=== PATIENT | male | born 1955 | race Two or more races ===

== ENCOUNTER 2020-04-20 18:22 | Inpatient (IN) | payer OTHER ==
[~2020-04-20] VITALS: Ht 170.2 cm; Wt 76.2 kg
--- NOTE | 2020-04-20 18:32 | NUR ---
BIBRA 58 FRM HOME C/O WEAKNESS AND ABDOMINAL PAIN "ONGOING FOR A LONG TIME" THORACENTESIS LAST WEEKK FROM PNEUMONIA, ON 2LPM O2 VIA NC, NEGATIVE COVID x 1WK, BS 124, PER PATIENT, DR GODWIN FROM [facility] SUGGESTED THAT HIS ABDOMEN BE DRAINED. TO ER BED 2, HOOKED TO MONITOR, CHANGED TO HOSP GOWN, WARM BLANKET PROVIDED, PATIENT AAO x 4, BREATHING EVEN AND UNLABORED, NAD NOTED. DR HOGUE AT BEDSIDE
--- NOTE | 2020-04-20 18:43 | NUR ---
JEWEL FLORES AT BEDSIDE FOR EKG
--- NOTE | 2020-04-20 18:47 | NUR ---
iv started 20g left fa labs and blood cultures done sent to lab monitors applied pending ua
--- NOTE | 2020-04-20 18:53 | NUR ---
ua sent to lab
--- NOTE | 2020-04-20 19:08 | NUR ---
XRAY AT BEDSIDE
[2020-04-20 19:13] LABS: ALANINE AMINOTRANSFERASE 20 U/L (12-78); ALKALINE PHOSPHATASE 141 U/L (46-116); ASPARTATE AMINOTRANSFERASE 42 U/L (15-37); B-TYPE NATRIURETIC PEPTIDE 85 PG/ML (0-125); BILIRUBIN,TOTAL 1.5 mg/dL (0.2-1.0); CALCIUM, SERUM 8.7 mg/dL (8.5-10.1); CARBON DIOXIDE 24 mmol/L (21-32); CHLORIDE 98 mmol/L (98-107); CREATININE 0.9 mg/dL (0.6-1.3); GLUCOSE 182 mg/dL (74-106); POTASSIUM 3.9 mmol/L (3.5-5.1); SODIUM SERUM 132 mmol/L (136-145); TOTAL PROTEIN, SERUM 8.5 g/dL (6.4-8.2); UREA NITROGEN, BLOOD 12 mg/dL (7-18)
[2020-04-20] MEDS ORDERED: CEFTRIAXONE 1GM BAG (ER ONLY) 1 GM/50 ML PIGGYBACK IV ONE (19:30)
--- NOTE | 2020-04-20 19:36 | NUR ---
VERBAL AUTH REC'D FROM EVELYN FROM [facility]
[2020-04-20] MEDS ORDERED: CEFTRIAXONE 1GM BAG (ER ONLY) 50 ML IV ONE (19:39)
--- NOTE | 2020-04-20 19:47 | NUR ---
DR. HOGUE SPEAKING WITH DR. HALE REGARDING ADMISSION
[2020-04-20 19:50] LABS: APPEARANCE,URINE CLEAR (CLEAR); BILIRUBIN,URINE SMALL (NEGATIVE); BLOOD, URINE NEGATIVE Ery/uL (NEGATIVE); COLOR,URINE YELLOW (YELLOW); KETONES,URINE TRACE (NEGATIVE); LEUKOCYTE ESTERASE ,URINE NEGATIVE (NEGATIVE); NITRITE, URINE NEGATIVE (NEGATIVE); PROTEIN,URINE 30 mg/dl (NEGATIVE); UGLUCOSE NEGATIVE (NEGATIVE)
[2020-04-20 20:01] LABS: BACTERIA,URINE None seen /HPF (None Seen); MUCUS,URINE Moderate /LPF (None Seen); RBC,URINE 0-2 /HPF (0-2); SQUAMOUS EPITHELIAL CELL,UR Few /HPF (None Seen); URINE AMORPHOUS URATE Few /HPF (None Seen)
[2020-04-20 20:04] LABS: BASOPHILS # (AUTO) 0.1 /CMM (0.0-0.2); BASOPHILS % (AUTO) 0.5 % (0.0-2.0); EOSINOPHILS % (AUTO) 0.7 % (0.0-6.0); HEMATOCRIT 26 % (39-51); HEMOGLOBIN 8.1 g/dL (13.5-17.5); LYMPHOCYTES # (AUTO) 0.7 /CMM (0.8-4.8); LYMPHOCYTES % (AUTO) 7.2 % (20.0-44.0); MEAN CORPUSCULAR HGB CONC 31 g/dl (31.0-36.0); MEAN CORPUSCULAR VOLUME 76 fL (80-96); MONOCYTES # (AUTO) 1.4 /CMM (0.1-1.30); MONOCYTES % (AUTO) 14.9 % (2.0-12.0); NEUTROPHILS # (AUTO) 7.3 /CMM (1.8-8.9); NEUTROPHILS % (AUTO) 76.7 % (43.0-81.0); PLATELET COUNT (AUTO) 256 /CMM (150-450); RED BLOOD CELL COUNT(AUTO) 3.48 MIL/uL (4.5-6.0); WHITE BLOOD COUNT (AUTO) 9.5 K/uL (4.3-11.0)
--- NOTE | 2020-04-20 20:21 | NUR ---
REC'D NEG COVID RESULTS
[2020-04-20] MEDS ORDERED: ACETAMINOPHEN 325 MG TABLET PO PRN (20:30)
[2020-04-20] MEDS ORDERED: MAG HYDROX/AL HYDROX/SIMETH 30 ML UDC PO PRN (20:30)
[2020-04-20] MEDS ORDERED: MAGNESIUM HYDROXIDE 30 ML UDC PO PRN (20:30)
[2020-04-20] MEDS ORDERED: FUROSEMIDE 40 MG/4 ML VIAL IV ONE (20:30)
[2020-04-20] MEDS ORDERED: Z GUARD REMEDY 2 OZ OINT TP PRN (20:30)
[2020-04-20] MEDS ORDERED: ONDANSETRON HCL/PF 4 MG/2 ML VIAL IVP PRN (20:30)
[2020-04-20] MEDS ORDERED: HYDROCODONE/APAP 5/325MG TABLET PO PRN (20:30)
--- NOTE | 2020-04-20 20:46 | NUR ---
BED ASSIGNMENT 106
--- NOTE | 2020-04-20 20:53 | NUR ---
REPORT GIVEN MAI MAKI FOR BRYCE PT WILL BE TRANSPORTED TO 1ST FLOOR
[2020-04-20 21:00] VITALS: BP 127/67
--- NOTE | 2020-04-20 21:05 | NUR ---
2105 ADMITTED FROM ER 64 YEAR OLD MALE VIA [facility] CHF, AAOX4. ABLE TO TRANSFER SELF TO [facility] BED WITH MIN ASSISTANCE. ON O2 AT 2LPM PER NC. NOTED WITH MILD SOB ON EXERTION. FACE MASK ON PATIENT. ADMISSION CARE AND ASSESSMENT RENDERED. NO SKIN BREAKDOWN NOTED BUT WITH SCATTERED REDNESS ON BACK, CHEST, AND ARMS. PATIENT WITH NO C/O PAIN WHEN ASKED. PLACED URINAL AT BEDSIDE AND CALL LIGHT AND INSTRUCTED TO CALL FOR ASSISTANCE.
--- NOTE | 2020-04-20 21:18 | NUR ---
PT TRANSPORTED TO [facility]
[2020-04-21] VITALS: BP 114/73
[2020-04-21] MEDS ORDERED: PIPERACILLIN /TAZOBACTAM 3.375 G VIAL IV ONE ×2 (00:15→05:13)
[2020-04-21] MEDS: ZOSYN IVPB 3.375 G in IV D5W 50ml IV SCH ×2 (00:26→04:00)
[2020-04-21] MEDS ORDERED: DEXTROSE 50%-WATER 50 ML DISP.SYRIN IV PRN (00:30)
[2020-04-21 04:00] VITALS: BP 114/67
--- NOTE | 2020-04-21 04:19 | NUR ---
RN notes Admitted a 64 year old male from ER via stretcher with diagnosis of fluid overload. Alert and oriented, verbally able to communicate needs. On room air , tolerating well. With procedure in AM for thoracentesis and paracentesis. Consent obtained. Noted with lung congestion upon auscultation. No complaint of pain or discomfort. Patient has a history of liver cirrhosis. Abdomen distended. Head of bed elevated. Needs attended. kept clean and dry. Will endorse to next shift for continuity of care.
[2020-04-21 06:48] LABS: BASOPHILS # (AUTO) 0.1 /CMM (0.0-0.2); BASOPHILS % (AUTO) 0.7 % (0.0-2.0); EOSINOPHILS % (AUTO) 1.6 % (0.0-6.0); HEMATOCRIT 24 % (39-51); HEMOGLOBIN 7.6 g/dL (13.5-17.5); LYMPHOCYTES # (AUTO) 0.6 /CMM (0.8-4.8); LYMPHOCYTES % (AUTO) 7.7 % (20.0-44.0); MEAN CORPUSCULAR HGB CONC 31 g/dl (31.0-36.0); MEAN CORPUSCULAR VOLUME 75 fL (80-96); MONOCYTES # (AUTO) 1.2 /CMM (0.1-1.30); MONOCYTES % (AUTO) 15.5 % (2.0-12.0); NEUTROPHILS # (AUTO) 5.8 /CMM (1.8-8.9); NEUTROPHILS % (AUTO) 74.5 % (43.0-81.0); PLATELET COUNT (AUTO) 234 /CMM (150-450); RED BLOOD CELL COUNT(AUTO) 3.25 MIL/uL (4.5-6.0); WHITE BLOOD COUNT (AUTO) 7.8 K/uL (4.3-11.0)
--- NOTE | 2020-04-21 07:20 | NUR ---
RN NOTE THE PATIENT IS RECEIVED IN BED. THE PATIENT IS ALERT AND ORIENTED X4. DENIES PAIN. RECEIVING OXYGEN AT 2L/MIN VIA NASAL CANNULA AND DENIES SOB. RESPIRATION REGULAR AND UNLABORED. LFA G 20 PATENT AND SALINE LOCKED. BED LOW AND LOCKED. SIDE RAILS UP X3. CALL LIGHT WITHIN REACH. WILL CONTINUE TO MONITOR.
[2020-04-21 07:38] LABS: CALCIUM, SERUM 8.7 mg/dL (8.5-10.1); CREATININE 0.7 mg/dL (0.6-1.3); PHOSPHORUS 2.6 mg/dL (2.5-4.9); POTASSIUM 3.5 mmol/L (3.5-5.1)
[2020-04-21] MEDS ORDERED: INSU100I4 SQ (07:51)
[2020-04-21] MEDS ORDERED: HYDR-3973 PO (07:51)
[2020-04-21] MEDS ORDERED: METF-442 PO (07:51)
[2020-04-21] MEDS ORDERED: INSU100I26 SQ (07:51)
[2020-04-21 08:00] VITALS: BP 133/82
[2020-04-21] MEDS: BLOOD SUGAR DIAGNOSTIC 1 EACH STRIP VI SCH ×4 (09:15→21:26)
[2020-04-21] MEDS: INSULIN REGULAR, HUMAN 100 UNIT/ML 3 ML VIAL SQ PRN (09:17)
--- NOTE | 2020-04-21 09:17 | NUR ---
RN NOTE BLOOD SUGAR IS 107. NO COVERAGE PER ORDER.
[2020-04-21] MEDS: METFORMIN 500 MG TABLET PO SCH ×2 (09:26→16:27)
[2020-04-21] MEDS: PIPERACILLIN /TAZOBACTAM 3.375 G in IV D5W 100 ML IV SCH ×2 (09:54→18:51)
[2020-04-21 13:00] VITALS: BP 128/87
--- NOTE | 2020-04-21 15:30 | NUR ---
RN NOTE THE PATIENT HAD THORACENTESIS AND 2010 ML FLUID WAS REMOVED AND THE FLUID WAS TAKEN TO THE LAB. PARACENTESIS WAS NOT DONE DUE TO PATIENT HAD ONLY TRACE OF FLUID IN ADBOMINAL CAVITY (PER DR BROOKS). THE PATIENT IN STABLE CONDITION AT THIS TIME. RESPIRATION REGULAR AND UNLABORED. DENIES SOB. DENIES PAIN. WILL CONTINUE TO MONITOR.
[2020-04-21 16:00] VITALS: BP 120/76
[2020-04-21] MEDS ORDERED: Medication Not On Formulary EA (Metformin Hcl 1,000 MG) PO SCH (17:00)
--- NOTE | 2020-04-21 19:02 | NUR ---
RN NOTE THE PATIENT IS ALERT AND ORIENTED X4. RECEIVING OXYGEN AT 2L/MIN VIA NASAL CANNULA AND SATURATION IS AT 98%. DENIES SOB. BREATHING EVEN AND UNLABORED. DENIES PAIN. EXTERNAL TELE BOX READING IS SINUS TACHYCARDIA 116. THE PATIENT IS IN NO APPARENT DISTRESS. LFA G 20 PATENT AND SALINE LOCKED. BED LOW AND LOCKED. SIDE RAILS UP X2. CALL LIGHT WITHIN REACH. WILL ENDORSE TO NIGHTS SHIFT.
--- NOTE | 2020-04-21 19:03 | NUR ---
RN NOTE PATIENT STATED THE HIS FAMILY WILL PROVIDE BASILGAR TOMORROW. PHARMACY IS MADE AWARE.
--- NOTE | 2020-04-21 19:20 | NUR ---
RN NOTE RECEIVED PATIENT IN BED RESTING, WATCHING TV, AWAKE, ALERT, ORIENTED X3. ABLE TO MAKE NEEDS KNOWN. PATIENT IS 64 Y/O MALE WITH DX OF FLUID OVERLOAD. BREATHING IS EVEN AND UNLABORED. NO SOB NOTED AT THIS TIME. ON 2 LITERS O2 VIA NC. PATIENT IS S/P THORACENTESIS PER AM SHIFT REPORT, WITH 2010 ML FLUID OUTPUT. PATIENT IS AMBULATORY WITH STANDBY ASSIST. CONTINENT OF BOWEL AND BLADDER. PATIENT IS MOTIVATED TO SELF CARE. SKIN IS INTACT. IV SITE ON LFA IS CLEAN, DRY, AND PATENT. PATIENT COMPLAINED OF 8/10 ABDOMINAL PAIN. WILL CONTINUE TO MONITOR.
[2020-04-21] MEDS: HYDROCODONE/APAP 5/325MG TABLET PO PRN (19:33)
[2020-04-21 20:00] VITALS: BP 113/64
[2020-04-21] MEDS: *INSULIN REGULAR(HUMULIN R)HUM 100 UNIT/ML VIAL SQ PRN (21:27)
[2020-04-22] VITALS: BP 104/75
[2020-04-22] MEDS: PIPERACILLIN /TAZOBACTAM 3.375 G in IV D5W 100 ML IV SCH ×3 (01:22→17:36)
[2020-04-22 04:00] VITALS: BP 117/68
--- NOTE | 2020-04-22 06:39 | NUR ---
RN NOTE PATIENT REMAINED STABLE THROUGHOUT THE NIGHT. NO SIGNIFICANT CHANGES NOTED. PATIENT IS KEPT CLEAN, DRY, AND COMFORTABLE. DUE MEDS GIVEN ORDERED AND TOLERATED WELL. WILL ENDORSE TO SHIFT RN FOR CONTINUATION OF CARE.
[2020-04-22 06:42] LABS: BASOPHILS # (AUTO) 0.1 /CMM (0.0-0.2); BASOPHILS % (AUTO) 0.7 % (0.0-2.0); EOSINOPHILS % (AUTO) 1.5 % (0.0-6.0); HEMATOCRIT 23 % (39-51); HEMOGLOBIN 7.1 g/dL (13.5-17.5); LYMPHOCYTES # (AUTO) 0.5 /CMM (0.8-4.8); LYMPHOCYTES % (AUTO) 5.6 % (20.0-44.0); MEAN CORPUSCULAR HGB CONC 31 g/dl (31.0-36.0); MEAN CORPUSCULAR VOLUME 75 fL (80-96); MONOCYTES # (AUTO) 1.2 /CMM (0.1-1.30); MONOCYTES % (AUTO) 12.2 % (2.0-12.0); NEUTROPHILS # (AUTO) 7.6 /CMM (1.8-8.9); PLATELET COUNT (AUTO) 230 /CMM (150-450); RED BLOOD CELL COUNT(AUTO) 3.04 MIL/uL (4.5-6.0); WHITE BLOOD COUNT (AUTO) 9.5 K/uL (4.3-11.0)
[2020-04-22 06:59] LABS: CALCIUM, SERUM 8.5 mg/dL (8.5-10.1); CREATININE 0.8 mg/dL (0.6-1.3); POTASSIUM 3.8 mmol/L (3.5-5.1)
--- NOTE | 2020-04-22 07:00 | NUR ---
RN NOTES RECEIVED PT ON BED , A/Ox4, ON 2L O2 N/C , RESPIRATION EVEN AND UNLABORED , NO DISTRESS NOTED , ON TELE SR HR IN 90'S , L FA IV SITE G 20 CLEAN, DRY AND INTACT, SR UP x3, CALL LIGHT WITHIN EASY REACH, BED LOCKED AND IN LOWEST POSITION, CONTINUE TO MONITOR .
[2020-04-22 08:00] VITALS: BP 109/70
[2020-04-22] MEDS: METFORMIN 500 MG TABLET PO SCH ×2 (08:07→17:08)
[2020-04-22] MEDS: INSULIN REGULAR, HUMAN 100 UNIT/ML 3 ML VIAL SQ PRN ×2 (08:08→11:18)
[2020-04-22] MEDS: BLOOD SUGAR DIAGNOSTIC 1 EACH STRIP VI SCH ×4 (08:09→22:15)
--- NOTE | 2020-04-22 12:00 | NUR ---
RN NOTES PT STABLE, OUT OF BED TO BATHROOM, CONTINUE TO MONITOR .
[2020-04-22 16:00] VITALS: BP 109/64
[2020-04-22] MEDS: HYDROCODONE/APAP 5/325MG TABLET PO PRN (17:12)
--- NOTE | 2020-04-22 18:13 | NUR ---
RN NOTES NO SIGNIFICANT CHANGES NOTED ON THIS SHIFT. VSS STABLE, WILL ENDOSE TO DIESEL ENGINE ERECTOR NURSE FOR CONTINUITY OF CARE .
--- NOTE | 2020-04-22 19:45 | NUR ---
RN OPENING NOTE RECEIVED PT IN BED A/Ox4, CURRENTLY ON 2L O2 VIA N/C. PT IN NO DISTRESS RESPIRATION EVEN AND UNLABORED, ON TELE MONITOR SR, IV SITE TO LFA PATENT AND INTACT FLUSHING WELL. SIDE RAILS UP X2, CALL LIGHT WITHIN EASY REACH, BED LOCKED AND IN LOWEST POSITION. SAFETY MEASURES IN PLACE WILL CONTINUE TO MONITOR PT.
[2020-04-22 20:00] VITALS: BP 90/55
--- NOTE | 2020-04-22 21:03 | NUR ---
RN NOTE PT AMBULATED TO THE RESTROOM WITHOUT DIFFICULTY, RECHECKED BP 95/58 HR 106. PT ON 2 L O2 VIA NC. WILL CONTINUE TO MONITOR PT
[2020-04-22] MEDS: INSULIN GLARGINE SQ SCH (22:00)
[2020-04-22] MEDS: [UNRECOGNIZED DRUG - OTHER] SQ SCH (22:00)
--- NOTE | 2020-04-22 22:20 | NUR ---
RN NOTE ACCUCHECK BLOOD SUGAR 148. INSULIN GLARGINE NOT ADMINISTERED PER MD ORDERS.
[2020-04-22] MEDS: *INSULIN REGULAR(HUMULIN R)HUM 100 UNIT/ML VIAL SQ PRN (22:23)
[2020-04-23] VITALS (69 sets, daily range): BP systolic 60–139; BP diastolic 27–75
[2020-04-23] MEDS: PIPERACILLIN /TAZOBACTAM 3.375 G in IV D5W 100 ML IV SCH ×3 (02:00→18:16)
--- NOTE | 2020-04-23 06:52 | NUR ---
RN CLOSING NOTE PT AWAKE WITH HOB ELEVATED, AMBULATED TO BATHROOM AT THIS TIME. SOB ON EXERTION, REMAINS ON 2 L VIA NC. IV TO LFA PATENT INTACT AND FLUSHING WELL. SIDE RAILS UP X 2, CALL LIGHT WITHIN REACH, ENDORSED TO AM RN FOR BRYCE
--- NOTE | 2020-04-23 07:30 | NUR ---
FISHERIES DIRECTOR OPENING NOTES RECEIVED PT IN BED A/Ox4, CURRENTLY ON 2L O2 VIA N/C. NOT IN ANY ACUTE DISTRESS AT THIS TIME. RESPIRATION EVEN AND UNLABORED. IV SITE TO LFA PATENT AND INTACT FLUSHING WELL. SIDE RAILS UP X2, CALL LIGHT WITHIN EASY REACH, BED LOCKED AND IN LOWEST POSITION. SAFETY PRECAUTIONS OBSERVED. WILL CONTINUE TO MONITOR.
[2020-04-23] MEDS: BLOOD SUGAR DIAGNOSTIC 1 EACH STRIP VI SCH ×3 (07:51→16:55)
[2020-04-23] MEDS: HYDROCODONE/APAP 5/325MG TABLET PO PRN (08:43)
--- NOTE | 2020-04-23 08:43 | NUR ---
ENGINEERING MATHEMATICIAN NOTES PT COMPLAINED OF ABDOMINAL PAIN, WITH PAIN SCALE OF 9/10. NORCO GIVEN ORDERED. PT NOTED TO BE ALERT AND ORIENTED X4, BUT NOTED SHORTNESS OF BREATH. PT IS ON O2 @ 2LPM, WITH O2 SAT OF 96%. VITAL SIGNS TAKEN WITH RESULTS OF 98.6, 22, 123, 97/56.
[2020-04-23] MEDS: METFORMIN 500 MG TABLET PO SCH ×2 (09:17→17:00)
--- NOTE | 2020-04-23 09:20 | NUR ---
patient having SOB, SEEN BY DR. MIRANDA WITH NEW ORDERS FOR STAT ABG,CXR AND PLACED ON MONITOR,
--- NOTE | 2020-04-23 09:20 | NUR ---
PATIENT ON 4LITERS N/C SATURATES 96%,C/O DIAPHRAGMATIC BREATHING AND ABLE TO COMMUNICATE " MY TUMMY HURTS " PER PATIENT.ON FOWLERS POSITION.NO N/V .
--- NOTE | 2020-04-23 09:39 | NUR ---
CODE BLUE INITIATED BY CODE TEAM,RESCUE BREATHING CONTINUED PATIENT W/ PULSE ,PREPARED BY RT FOR INTUBATION.
--- NOTE | 2020-04-23 09:39 | NUR ---
PATIENT BECOME ALTERED, AGONAL BREATHING AND DESATURATES 70'S,INITIATED CODE BLUE AND RESCUE BREATHING BY AMBU BAG INITIATED.FAMILY NOTIFIED AND CONFIRMED FULL CODE STATUS,EMOTIONAL SUPPORT PROVIDED.
[2020-04-23 09:40] LABS: ABG BASE EXCESS -22.7 mmol/L; ABG OXYGEN SATURATION 95.4 % (92.0-98.5); ABG PCO2 20.3 mmHg (35.0-45.0); ABG PH 7.057 (7.350-7.450); ABG PO2 114.1 mmHg (75.0-100.0); AaDO2 61.6 mmHg; COHb 1.5 % (0.5-1.5); MetHb 0.9 % (0.0-1.5); O2Hb 93.1 % (94.0-97.0); SITE, ABG Left Brachial; VENT MODE, BG Nasal Cannula
[2020-04-23 09:41] LABS: CALCIUM, SERUM 8.9 mg/dL (8.5-10.1); CREATININE 1.6 mg/dL (0.6-1.3); POTASSIUM 4.9 mmol/L (3.5-5.1)
[2020-04-23 09:43] LABS: BASOPHILS # (AUTO) 0.1 /CMM (0.0-0.2); BASOPHILS % (AUTO) 0.5 % (0.0-2.0); EOSINOPHILS % (AUTO) 0.1 % (0.0-6.0); LYMPHOCYTES # (AUTO) 1.2 /CMM (0.8-4.8); MEAN CORPUSCULAR HGB CONC 26 g/dl (31.0-36.0); MEAN CORPUSCULAR VOLUME 88 fL (80-96); MONOCYTES # (AUTO) 1.8 /CMM (0.1-1.30); MONOCYTES % (AUTO) 11.7 % (2.0-12.0); NEUTROPHILS % (AUTO) 79.7 % (43.0-81.0); PLATELET COUNT (AUTO) 274 /CMM (150-450); RED BLOOD CELL COUNT(AUTO) 2.18 MIL/uL (4.5-6.0); WHITE BLOOD COUNT (AUTO) 15.1 K/uL (4.3-11.0)
[2020-04-23 09:46] LABS: MAGNESIUM 2.4 mg/dL (1.8-2.4); PHOSPHORUS 4.8 mg/dL (2.5-4.9)
--- NOTE | 2020-04-23 09:50 | NUR ---
INTUBATION DONE BY ER MD,DR. MARTINEZ AT BEDSIDE AND DR. MORENO.ACLS PROTOCOL FOLLOWED DURING CODE.
[2020-04-23 10:07] LABS: HEMATOCRIT 19 % (39-51)
--- NOTE | 2020-04-23 10:11 | NUR ---
RN NOTES TRANSFERRED PT TO ICU PER ACLS PROTOCOL, VIA GURNEY. BEDSIDE REPORT GIVEN TO LAVELLE GUZMAN) FOR CONTINUITY OF CARE.
[2020-04-23] MEDS ORDERED: VANCOMYCIN 1 GM in IV D5W 250 ML IV ONE (10:30)
[2020-04-23] MEDS ORDERED: FEE EMEERGENCY 1 MIN EA MC ONE (10:38)
[2020-04-23] MEDS ORDERED: SODIUM BICARBONATE SYR 50 MEQ/50 ML DISP.SYRIN IV ONE ×3 (10:38→13:30)
--- NOTE | 2020-04-23 10:40 | NUR ---
RN INITIAL NOTES RECEIVED PT FROM [facility]. SP CODE BLUE. PT INTUBATED, ON VENT. PT CONNECTED TO MONITOR. PT TACHYCARDIC ON MONITOR, 120-130S. LEVOPHED INFUSING AT 1MCG/KG/MIN. IV LINES IN PLACE. SEEN BY DR MARTINEZ AND DR PATTERSON. AWARE OF LAB VALUES AN CXR RESULT, ORDERS MADE. INSERTED OG TUBE AND LARIOS CATHETER ORDERED. PT FOR BLOOD TRANSFUSION 2 UNITS, AWAITING BLOOD AVAILABILITY. FAMILY NOTIFIED OF TRANSFER. WILL CLOSELY MONITOR
[2020-04-23] MEDS: *INSULIN REGULAR(HUMULIN R)HUM 100 UNIT/ML VIAL SQ PRN (10:51)
[2020-04-23] MEDS ORDERED: IV NS 0.9% 1,000 ML IV ONE ×2 (11:00→21:00)
[2020-04-23] MEDS: PROPOFOL 100 ML IV PRN (11:47)
[2020-04-23] MEDS ORDERED: IV D5/ 0.9% NACL 1,000 ML IV SCH (12:00)
[2020-04-23] MEDS: NOREPINEPHRINE 8 MG in IV NS 0.9% 242 ML IV PRN ×3 (12:13→16:50)
[2020-04-23 12:28] LABS: EOSINOPHILS % (MANUAL) 1 % (0-4); LYMPHOCYTES % (MANUAL) 8 % (16-48); MONOCYTES % (MANUAL) 9 % (0-11.0); NEUTROPHILS % (MANUAL) 82 (42-76)
[2020-04-23 13:17] LABS: ABG BASE EXCESS -23.9 mmol/L; ABG OXYGEN SATURATION 99.3 % (92.0-98.5); ABG PCO2 40.2 mmHg (35.0-45.0); AaDO2 416.8 mmHg; COHb 0.6 % (0.5-1.5); MetHb 0.6 % (0.0-1.5); O2Hb 98.1 % (94.0-97.0); PEEP,BG 0 cm H2O; SITE, ABG Left Radial; VT, ABG 500 mL
--- NOTE | 2020-04-23 13:52 | NUR ---
RT [address] INTUB[address] BY DR ROD, 7.5 ETT MARKED @ 22 CM LIP. POSITIVE COLOR CHANGE ON END TIDAL C02, GALILEA B/S AUSCULTATED BY MD. 1030 PT TRANSPORTED TO ICU, PLACED ON [facility] VENT. SETTINGS PER DR MARTINEZ. VENT IS PLUGGED IN RED OUTLET. ALARMS CHECKED AND AUDIBLE. AMBU BAG NOTED HOB. 1317 ABG OBTAINED AND RESULTS RELAYED TO RN AND DR MARTINEZ, PER MD CHANGE SETTINGS TO R28 VT 550 FIO2 60%. ORDER IS IN AND CHANGES WERE MADE. RN AWARE. NO SOB OR RESP DISTRESS NOTED AT THIS TIME, WILL CONTINUE TO MONITOR T/O SHIFT.
[2020-04-23] MEDS ORDERED: NOREPINEPHRINE 8MG/250ML RTU 250 ML IV ONE (14:27)
[2020-04-23] MEDS ORDERED: ROCURONIUM BROMIDE 50 MG/5 ML IV ONE (14:27)
[2020-04-23] MEDS ORDERED: ETOMIDATE 2 MG/ML VIAL IV ONE (14:27)
[2020-04-23 16:09] LABS: ABG BASE EXCESS -23.2 mmol/L; ABG OXYGEN SATURATION 95.2 % (92.0-98.5); ABG PCO2 27.7 mmHg (35.0-45.0); ABG PO2 102.2 mmHg (75.0-100.0); AaDO2 295.1 mmHg; COHb 0.4 % (0.5-1.5); MetHb 0.4 % (0.0-1.5); O2Hb 94.4 % (94.0-97.0); PEEP,BG 0 cm H2O; SITE, ABG Left Radial; VT, ABG 550 mL
[2020-04-23] MEDS ORDERED: ANESTHESIA TRAY IN PYXIS 1 EA TRAY MC ONE (16:31)
[2020-04-23 16:36] LABS: BASOPHILS # (AUTO) 0.1 /CMM (0.0-0.2); BASOPHILS % (AUTO) 0.3 % (0.0-2.0); EOSINOPHILS % (AUTO) 0.1 % (0.0-6.0); HEMATOCRIT 27 % (39-51); HEMOGLOBIN 7.4 g/dL (13.5-17.5); LYMPHOCYTES % (AUTO) 4.7 % (20.0-44.0); MEAN CORPUSCULAR HGB CONC 27 g/dl (31.0-36.0); MEAN CORPUSCULAR VOLUME 92 fL (80-96); MONOCYTES # (AUTO) 5.8 /CMM (0.1-1.30); MONOCYTES % (AUTO) 13.4 % (2.0-12.0); NEUTROPHILS # (AUTO) 35.2 /CMM (1.8-8.9); NEUTROPHILS % (AUTO) 81.5 % (43.0-81.0); PLATELET COUNT (AUTO) 168 /CMM (150-450); RED BLOOD CELL COUNT(AUTO) 2.93 MIL/uL (4.5-6.0)
[2020-04-23 16:40] LABS: WHITE BLOOD COUNT (AUTO) 43.2 K/uL (4.3-11.0)
[2020-04-23] MEDS ORDERED: SODIUM BICARBONATE SYR 150 MEQ in IV D5W 1,000 ML IV ONE (17:00)
[2020-04-23 17:06] LABS: EOSINOPHILS % (MANUAL) 1 % (0-4); LYMPHOCYTES % (MANUAL) 5 % (16-48); MONOCYTES % (MANUAL) 9 % (0-11.0); NEUTROPHILS % (MANUAL) 85 (42-76)
[2020-04-23 17:32] LABS: CALCIUM, SERUM 8.6 mg/dL (8.5-10.1); POTASSIUM 4.5 mmol/L (3.5-5.1)
--- NOTE | 2020-04-23 17:45 | NUR ---
RN NOTES 1638 DR MARTINEZ NOTIFIED OF ABG RESULT. ORDERED D5W+SODIUM BICARB 150MEQ AT 150ML/HR. NO RESPIRATORY DISTRESS NOTED. HOB ELEVATED. WILL CLOSELY MONITOR 1725 STATUS POST EGD BY DR ARROYO. NOTED GRADE 2 VARICES, SP BANDING X7. PT REMAINS INTUBATED, ON VENT. NO RESPIRATORY DISTRESS NOTED. NO SIGNS OF PAIN NOTED. REMAINS SEDATED, ON DIPRIVAN AT 10MCG/KG/MIN. ON LEVO AT 0.7MCG/KG/MIN. ORDERS MADE AND CARRIED OUT. WILL MONITOR 1730 DR MIRANDA NOTIFIED OF RECENT LAB VALUES AND EGD RESULT. ORDERED ADDITIONAL 2 UNITS OF PRBC. WILL CLOSELY MONITOR
[2020-04-23] MEDS ORDERED: OCTREOTIDE 50 MCG in IV NS 0.9% 50 ML IJ ONE (18:00)
[2020-04-23] MEDS ORDERED: OCTREOTIDE 500 MCG in IV NS 0.9% 99 ML IV PRN (18:00)
[2020-04-23] MEDS: METOCLOPRAMIDE HCL 10 MG/2 ML VIAL IV SCH (18:03)
--- NOTE | 2020-04-23 18:50 | NUR ---
RN CLOSING NOTES PT REMAINS INTUBATED, ON VENT. HOB ELEVATED. NO RESPIRATORY DISTRESS NOTED. PT SEDATED, ON DIPRIVAN AT 10MCG/KG/MIN. ON LEVO AT 0.7MCG/KG/MIN. BP CLOSELY MONITOR. IVF INFUSING. RIGHT FEMORAL TLC IN PLACE. LARIOS IN PLACE. BLE ELEVATED. WILL ENDORSE FOR CONTINUITY OF CARE
[2020-04-23] MEDS: CEFTRIAXONE 1 G in IV D5W 50 ML IV SCH (18:54)
[2020-04-23] MEDS: NOREPINEPHRINE 32 MG in IV NS 0.9% 218 ML IV PRN (19:06)
[2020-04-23] MEDS: OCTREOTIDE 1,250 MCG in IV NS 0.9% 247.5 ML IV PRN (19:20)
--- NOTE | 2020-04-23 19:30 | NUR ---
ICU/INSPECTOR CRYSTAL RECEIVED REPORT FROM DAY NURSE. SEE FLOWSHEET FOR ASSESSMENT, SKIN ISSUES ARE ADDRESSED ON FLOW SHEET ALONG WITH THE INTERVENTIONS TO EACH. PT IS SEDATED. PT IS ORALLY INTUBATED TOLERATING CURRENT VENT SETTINGS WELL WITH SATURATION AT 100%. PT WAS TURN AND REPOSITION FOR COMFORT AND CARE. WILL CONTINUE TO MONITOR THIS PT, NO ACUTE DISTRESS SEEN. PT IS CURRENTLY ON MANY DRIPS WHICH IS ADDRESSED ON IV FLOWSHEET.
--- NOTE | 2020-04-23 19:48 | NUR ---
Pt rcvd intubated with 7.5 ETT@ 22cm on AC setting. .ETT patent and secure. Ambu bag @ HOB. Alarms on and audible. SX done, small thick secrections noted. No signs of resp distress noted. Will continue to monitor Q shift. Addendum: 04/24/20 at 0407 by CRISTIN RESENDIZ RT Amended: Links added.
--- NOTE | 2020-04-23 19:55 | NUR ---
ICU/FAILURE ANALYSIS TECHNICIAN PT'S BLOOD PRESSURE IS UNABLE, MADE CHARGE NURSE AWARE OF THIS WAS ACTIVELY TITRATING LEVO FOR BP. 1905@ LEVO WAS INCREASED BY DAY RN UP TO 0.7 DURING REPORT FOR LOW BP 60'S. 1919@LEVO WAS INCREASED AGAIN A SECOND TIME TO 0.8 BY DAY RN FOR LOW BP 66/50 1934@LEVO WAS INCREASED FOR LOW BP 70'S BY NIGHT CHARGE NURSE TO 0.9. 1949@LEVO WAS INCREASED TO 1.0 FOR LOW BP 80'S. WILL MONITOR THIS PT'S BP, NO ACUTE DISTRESS SEEN AT THIS TIME.
[2020-04-23 20:23] LABS: ABG BASE EXCESS -24.2 mmol/L; ABG OXYGEN SATURATION 94.7 % (92.0-98.5); ABG PCO2 24.6 mmHg (35.0-45.0); ABG PH 6.975 (7.350-7.450); AaDO2 300.7 mmHg; COHb 0.5 % (0.5-1.5); MetHb 0.3 % (0.0-1.5); O2Hb 93.9 % (94.0-97.0); PEEP,BG 0 cm H2O; SITE, ABG Left Radial; VENT MODE, BG AC 28 550 60%
--- NOTE | 2020-04-23 20:25 | NUR ---
ICU/SWATCH CUTTER ABG WAS DONE, RESULTS WERE CALLED IN TO BAM MYRICK, WHO GAVE ORDER FOR 2 AMPS BICARB AND 1 LITER BOLUS OF NS. CHARGE NURSE AWARE OF THE ORDER AND WERE CARRIED OUT. PT HAS AM ABG. WILL CONTINUE TO MONITOR THIS PT
[2020-04-23] MEDS ORDERED: SODIUM BICARBONATE SYR 50 MEQ/50 ML DISP.SYRIN IV STA (21:15)
[2020-04-23] MEDS ORDERED: DEXTROSE 50%-WATER 50 ML DISP.SYRIN IV PRN (21:30)
--- NOTE | 2020-04-23 21:40 | NUR ---
ICU/GARMENT ALTERATION EXAMINER 2130@ PT IS CURRENTLY NPO, CHANGED OVER THE SLIDING SCALE TO NPO FROM [facility]S. 2009 @ PT'S TEMP WAS 92.8 RECTALLY, GOT ORDER FOR OMAR MI. WILL CONTINUE TO MONITOR THIS PT AND HIS TEMP.
--- NOTE | 2020-04-23 22:45 | NUR ---
SPOKE TO SON FLORIDALMA PALENICA [phone], GAVE HIM UPDATES ABOUT FATHERS CONDITION. SAID HE WILL CALL BACK LATER.
[2020-04-23] MEDS: VANCOMYCIN 0.75 GM in IV D5W 250 ML IV SCH (23:25)
--- NOTE | 2020-04-23 23:30 | NUR ---
ICU/CHIP APPLYING MACHINE TENDER PT APPEARED TO BE WAKING UP, CHARGE NURSE WAS NOTIFIED ABOUT THIS. SEDATION WAS INCREASED TO 15MCG FROM 10MCG.
[2020-04-24] VITALS (107 sets, daily range): BP systolic 46–114; BP diastolic 25–64
[2020-04-24] MEDS: [UNRECOGNIZED DRUG - OTHER] SQ SCH (00:05)
[2020-04-24] MEDS: INSULIN GLARGINE SQ SCH (00:05)
[2020-04-24] MEDS: BLOOD SUGAR DIAGNOSTIC 1 EACH STRIP IN SCH ×4 (00:05→17:36)
[2020-04-24] MEDS: INSULIN REGULAR, HUMAN 100 UNIT/ML 3 ML VIAL SQ PRN ×2 (00:07→06:30)
--- NOTE | 2020-04-24 00:30 | NUR ---
ICU/AUTO PAINTER HELPER PT'S BLOOD SUGAR IS 257 THIS WAS COVED WITH PT'S OWN LANTUS AND REGULAR INSULIN SLIDING SCALE. WILL CONTINUE TO MONITOR THIS PT'S SUGAR ORDERED BY MD AND HOSPITAL PROTOCOL.
--- NOTE | 2020-04-24 01:20 | NUR ---
ICU/VENTILATING ENGINEER PT'S HEART RATE IS 120'S TO 130'S, PT IS CURRENTLY ON LEVO FOR SBP KEEP GREATER THAN 90, NOTIFIED BAM MYRICK FOR BIJAN INSTEAD OF LEVO TO HELP REDUCE HEART RATE AND MAINTAIN SBP. ORDERS WERE OBTAINED THEN LAG SCREWER NURSE NOTIFIED OF THIS AND ORDERS WERE CARRIED OUT. WILL CONTINUE TO CLOSELY MONITOR THIS PT AND HIS BLOOD PRESSURE
[2020-04-24] MEDS: PIPERACILLIN /TAZOBACTAM 3.375 G in IV D5W 100 ML IV SCH ×3 (02:23→17:28)
[2020-04-24] MEDS: METOCLOPRAMIDE HCL 10 MG/2 ML VIAL IV SCH ×3 (02:23→17:37)
[2020-04-24] MEDS ORDERED: PHENYLEPHRINE 10 MG/ML VIAL ONE (02:25)
[2020-04-24] MEDS: PROPOFOL 100 ML IV PRN ×2 (02:35→12:40)
[2020-04-24] MEDS: PHENYLEPHRINE 100 MG in IV NS 0.9% 240 ML IV PRN ×3 (02:47→17:12)
--- NOTE | 2020-04-24 02:58 | NUR ---
ICU/AIRCRAFT ELECTRICIAN ORDER WAS OBTAINED FOR BIJAN DUE TO PT'S INCREASING HEART RATE 120'S TO 130'S ON LEVO. CHARGE NIRSE MADE CABRERA OF THE CHANGE AND THIS WAS CARRIED OUT. WILL CONTINUE TO MONITOR THIS PT.
--- NOTE | 2020-04-24 03:52 | NUR ---
ICU/SEGMENT ASSEMBLER FIO2 WAS CHANGED DOWN TO 50% FROM 60, PT HAS BEEN SATURATING AT 100% THROUGH THE NIGHT WILL MONITOR THIS TP.
[2020-04-24] MEDS: NOREPINEPHRINE 32 MG in IV NS 0.9% 218 ML IV PRN ×4 (05:15→18:28)
--- NOTE | 2020-04-24 06:26 | NUR ---
ICU/BEAM MACHINE OPERATOR STARTED SECOND PRESSOR LEVO FOR LOW BP FO 60'S AND 70'S. WILL WATCH BP.
--- NOTE | 2020-04-24 07:27 | NUR ---
ICU/JIG BORE TOOL MAKER OF PT CALLED, GAVE REPORT TO HER. HOWEVER DUE TO THE EVENTS THAT TOOK PLACE OVER NIGHT AND ADDING A SECOND PRESSOR MADE AWARE OF THIS.
--- NOTE | 2020-04-24 08:00 | NUR ---
received pt from fast food shift lead, sedated on Diprivan at 15mcg, ST, intubated, sat well, NPO, f/c low output, MD aware, on levo at 0.3mcg, demetri at 3mcg and Sandostatin drip, v/s stable, no pain, pt turned and repositioned.
[2020-04-24 08:13] LABS: CALCIUM, SERUM 7.9 mg/dL (8.5-10.1); CREATININE 2.7 mg/dL (0.6-1.3); POTASSIUM 5.8 mmol/L (3.5-5.1)
[2020-04-24] MEDS: METFORMIN 500 MG TABLET PO SCH (08:36)
[2020-04-24 08:51] LABS: BASOPHILS # (AUTO) 0.1 /CMM (0.0-0.2); HEMOGLOBIN 7.9 g/dL (13.5-17.5); LYMPHOCYTES # (AUTO) 1.5 /CMM (0.8-4.8)
[2020-04-24 08:52] LABS: ABG BASE EXCESS -9.3 mmol/L; ABG OXYGEN SATURATION 93.6 % (92.0-98.5); ABG PCO2 24.8 mmHg (35.0-45.0); ABG PH 7.384 (7.350-7.450); ABG PO2 72.1 mmHg (75.0-100.0); AaDO2 328.4 mmHg; COHb 0.1 % (0.5-1.5); MetHb 0.2 % (0.0-1.5); O2Hb 93.3 % (94.0-97.0); SITE, ABG Left Radial; VENT MODE, BG AC 28; VT, ABG 550 mL
[2020-04-24 08:54] LABS: BASOPHILS % (AUTO) 0.4 % (0.0-2.0); EOSINOPHILS % (AUTO) 0.1 % (0.0-6.0); HEMATOCRIT 26 % (39-51); LYMPHOCYTES % (AUTO) 4.4 % (20.0-44.0); MEAN CORPUSCULAR HGB CONC 31 g/dl (31.0-36.0); MEAN CORPUSCULAR VOLUME 88 fL (80-96); MONOCYTES # (AUTO) 4.1 /CMM (0.1-1.30); MONOCYTES % (AUTO) 11.8 % (2.0-12.0); NEUTROPHILS # (AUTO) 29.2 /CMM (1.8-8.9); NEUTROPHILS % (AUTO) 83.3 % (43.0-81.0); PLATELET COUNT (AUTO) 83 /CMM (150-450); RED BLOOD CELL COUNT(AUTO) 2.94 MIL/uL (4.5-6.0)
[2020-04-24 09:13] LABS: WHITE BLOOD COUNT (AUTO) 35.1 K/uL (4.3-11.0)
[2020-04-24] MEDS: HYDROCORTISONE SOD SUCCINATE 100 MG/2 ML VIAL IV SCH ×2 (09:53→14:01)
[2020-04-24 10:26] LABS: BAND % (MANUAL) 1 % (0.0-5.0); LYMPHOCYTES % (MANUAL) 2 % (16-48); MONOCYTES % (MANUAL) 8 % (0-11.0); NEUTROPHILS % (MANUAL) 89 (42-76)
[2020-04-24] MEDS: OCTREOTIDE 1,250 MCG in IV NS 0.9% 247.5 ML IV PRN (10:51)
[2020-04-24] MEDS ORDERED: HYDROCORTISONE SOD SUCCINATE 100 MG/2 ML VIAL IV SCH (11:00)
[2020-04-24] MEDS: VANCOMYCIN 0.75 GM in IV D5W 250 ML IV SCH (11:00)
[2020-04-24] MEDS ORDERED: ALBUMIN 25% 25 GM in PREMIX 1 EA IV SCH (13:30)
[2020-04-24] MEDS ORDERED: FUROSEMIDE 100 MG/10 ML VIAL IV SCH (13:42)
[2020-04-24] MEDS ORDERED: IV NS 0.9% 500 ML IV ONE (15:00)
[2020-04-24 15:06] LABS: THYROID STIMULATING HORMONE 1.303 uIU/mL (0.358-3.74)
--- NOTE | 2020-04-24 16:00 | NUR ---
pt still bleeding form his mouth, Dr Gomez notified, orders received. pt is on 3 pressors at maximum dose, family at the bedside. BP and Sat very low.
[2020-04-24] MEDS: VASOPRESSIN INJ 40 UNIT in IV NS 0.9% 38 ML IV PRN ×2 (16:25→17:15)
[2020-04-24] MEDS: CEFTRIAXONE 1 G in IV D5W 50 ML IV SCH (17:28)
--- NOTE | 2020-04-24 17:40 | NUR ---
BS 20, D50 given.
[2020-04-24] MEDS ORDERED: PANTOPRAZOLE 40 MG VIAL IV SCH (17:46)
--- NOTE | 2020-04-24 17:52 | NUR ---
pt is comatose, no reflexes, pupils fixed and dilated, no BP, even manual, family at the bedside.
--- NOTE | 2020-04-24 18:15 | NUR ---
pt is actively bleeding from his mouth, Dr Sanchez called. Dr Gomez is aware.
--- NOTE | 2020-04-24 18:30 | NUR ---
ICU/RELIEF CHARGE: RECEIVED CALL FOR CRITICAL H/H. HEMOGLOBIN 2.03/20. NOTIFIED. PT MAXED OUT ON THREE PRESSORS. FAMILY NOTIFIED OF PT CRITICAL CONDITION, WAS ALLOWED TO VISIT PER ADMINISTRATION. POOR PROGNOSIS. NO NEW ORDERS AT THIS TIME PER DR. MIRANDA. UNABLE TO PAGE . PT REMAINS FULL CODE. WILL CONTINUE CARE.
--- NOTE | 2020-04-24 18:30 | NUR ---
H/H 2.03/20 Dr Gomez notified.
[2020-04-24 18:34] LABS: BASOPHILS # (AUTO) 0.1 /CMM (0.0-0.2); MONOCYTES # (AUTO) 3.3 /CMM (0.1-1.30)
[2020-04-24 18:40] LABS: BASOPHILS % (AUTO) 0.4 % (0.0-2.0); EOSINOPHILS % (AUTO) 0.3 % (0.0-6.0); LYMPHOCYTES # (AUTO) 1.6 /CMM (0.8-4.8); LYMPHOCYTES % (AUTO) 8.2 % (20.0-44.0); MEAN CORPUSCULAR HGB CONC 27 g/dl (31.0-36.0); MEAN CORPUSCULAR VOLUME 103 fL (80-96); MONOCYTES % (AUTO) 17.2 % (2.0-12.0); NEUTROPHILS # (AUTO) 14.2 /CMM (1.8-8.9); NEUTROPHILS % (AUTO) 73.9 % (43.0-81.0); WHITE BLOOD COUNT (AUTO) 19.3 K/uL (4.3-11.0)
[2020-04-24 18:47] LABS: HEMATOCRIT 10 % (39-51); HEMOGLOBIN 2.6 g/dL (13.5-17.5); RED BLOOD CELL COUNT(AUTO) 0.93 MIL/uL (4.5-6.0)
[2020-04-24 18:48] LABS: PLATELET COUNT (AUTO) 48 /CMM (150-450)
--- NOTE | 2020-04-24 18:52 | NUR ---
Dr Farias is not responding.
--- NOTE | 2020-04-24 19:30 | NUR ---
Patient has no pulse with PEA on the monitor. Reba aguirre initiated and started high quality CPR with reba aguirre team at bedside running code. 1931- Dr. Carrera arrived at bedside to continue reba aguirre. 1937- Pulse check performed by reba aguirre team with no pulse and asystole on the monitor. 1937- Dr. Berman called time of at 1937. will contact [facility] [employer], metal sponge making machine operator md, admitting as well as lighthouse keeper of patient .
[2020-04-24] MEDS ORDERED: FEE EMEERGENCY 1 MIN EA MC ONE (20:05)
[2020-04-24] MEDS ORDERED: EPINEPHRINE (1:10,000) SYRINGE 1 MG/10 ML DISP.SYRIN IVP ONE (20:05)
[2020-04-24 20:28] LABS: BAND % (MANUAL) 3 % (0.0-5.0); LYMPHOCYTES % (MANUAL) 16 % (16-48); MONOCYTES % (MANUAL) 4 % (0-11.0); NEUTROPHILS % (MANUAL) 77 (42-76)
[2020-04-24] MEDS ORDERED: VANCOMYCIN 0.75 GM in IV D5W 250 ML IV SCH (23:00)
== END 2020-04-24 21:27 | disposition expired | DRG 981 ==
LOC: ER 18:28 → TELE1 20:46 → MEDSG1 04-22 08:43 → TELE1 04-23 09:28 → ICU 04-23 10:18
PROVIDERS: ADMIT Internal Medicine; ATTEND Internal Medicine
PROC: 0W994ZZ Drainage of Right Pleural Cavity, Percutaneous Endoscopic Approach (ICD-10-PCS; 2020-04-21)
PROC: 5A1945Z Respiratory Ventilation, 24-96 Consecutive Hours (ICD-10-PCS; principal; 2020-04-23)
PROC: 0BH17EZ Insertion of Endotracheal Airway into Trachea, Via Natural or Artificial Opening (ICD-10-PCS; 2020-04-23)
PROC: 30233N1 Transfusion of Nonautologous Red Blood Cells into Peripheral Vein, Percutaneous Approach (ICD-10-PCS; 2020-04-23)
PROC: 06L28CZ Occlusion of Gastric Vein with Extraluminal Device, Via Natural or Artificial Opening Endoscopic (ICD-10-PCS; 2020-04-23)
PROC: 06H033Z Insertion of Infusion Device into Inferior Vena Cava, Percutaneous Approach (ICD-10-PCS; 2020-04-23)
PROC: B549ZZA Ultrasonography of Inferior Vena Cava, Guidance (ICD-10-PCS; 2020-04-23)
PROC: 30233K1 Transfusion of Nonautologous Frozen Plasma into Peripheral Vein, Percutaneous Approach (ICD-10-PCS; 2020-04-24)
PROC: 5A12012 Performance of Cardiac Output, Single, Manual (ICD-10-PCS; 2020-04-24)
DX: I11.0 Hypertensive heart disease with heart failure (principal); J18.9 Pneumonia, unspecified organism; E43 Unspecified severe protein-calorie malnutrition; N17.0 Acute kidney failure with tubular necrosis; J96.01 Acute respiratory failure with hypoxia; I85.11 Secondary esophageal varices with bleeding; E87.1 Hypo-osmolality and hyponatremia; J90 Pleural effusion, not elsewhere classified; E87.2 Acidosis; D62 Acute posthemorrhagic anemia; R18.8 Other ascites; J44.0 Chronic obstructive pulmonary disease with (acute) lower respiratory infection; D68.4 Acquired coagulation factor deficiency; K76.6 Portal hypertension; K74.60 Unspecified cirrhosis of liver; I50.33 Acute on chronic diastolic (congestive) heart failure; R57.1 Hypovolemic shock; Z68.27 Body mass index [BMI] 27.0-27.9, adult; E87.5 Hyperkalemia; Z79.4 Long term (current) use of insulin; Z87.891 Personal history of nicotine dependence; R74.01 Elevation of levels of liver transaminase levels; E88.09 Other disorders of plasma-protein metabolism, not elsewhere classified; I27.20 Pulmonary hypertension, unspecified; D72.829 Elevated white blood cell count, unspecified; E11.65 Type 2 diabetes mellitus with hyperglycemia
CPT/HCPCS: 31720; 36415; 36600; 71045-TC; 76705-TC; 80048-TC; 80061-TC; 80076-TC; 80202-TC; 81000-TC; 82533; 82728-TC; 82803-TC; 82962-TC; 83540-TC; 83605-TC; 83615-TC; 83735-TC; 83880; 84100-TC; 84155-TC; 84439-TC; 84443-TC; 84484-TC; 85025-TC; 85610-TC; 85730-TC; 86850-TC; 87040-TC; 87070-TC; 87081-TC; 89051-TC; 93307-TC; 94002-TC; 94003-TC; 94799-TC; 99082-TC; A4216; A6403; C1751; C9803; G0378; J0171; J0696; J1720; J1815; J1940; J2354; J2370; J2543; J2704; J2765; J3370; J3490; J7030; J7040; J7042; J7050; J7060; J7070; P9016-BL; P9017-BL; P9047